=== PATIENT | female | born 1935 | race Caucasian/White ===

== ENCOUNTER → 2020-09-04 | Outpatient (CLI) | payer MEDICARE ==
--- NOTE | 2020-09-04 15:05 | RAD ---
BONE DENSITY AXIAL History: Reason: / Spl. Instructions: / History: Post menopausal TECHNIQUE: Dual energy x-ray absorptiometry of the lumbar spine and right hip was performed. T-score of average bone mineral density based was calculated based on standard deviations above or below the expected young adult normal value. Diagnostic definitions were established by the [employer]. FINDINGS: The average bone mineral density associated with L1-L4 is 0.965 g/cm^2, corresponding with a T-score of -1.8. The average total bone mineral density associated with right hip is 0.756 g/cm^2, corresponding with a T-score of -1.6. Isolated right femoral neck T score -2.8. No comparison examinations are available. Refer to the worksheets for full detail. IMPRESSION: 1. Osteoporosis according to isolated right femoral neck T score. Osteopenia according to the lumbar spine and average of the right hip. Electronically signed by: Tha Hopper DO (09/04/2020 3:02 PM) [id number]
== END ==
LOC: DXRAD 12:44
PROVIDERS: ATTEND Family Medicine
DX: M81.0 Age-related osteoporosis without current pathological fracture (principal); M81.8 Other osteoporosis without current pathological fracture; M85.88 Other specified disorders of bone density and structure, other site
CPT/HCPCS: 77080

== ENCOUNTER → 2021-10-15 | Outpatient (CLI) | payer MEDICARE, OTHER | LOC: MAMMO 10:47 | PROVIDERS: ATTEND Family Medicine | DX: Z12.31 Encounter for screening mammogram for malignant neoplasm of breast (principal) | CPT/HCPCS: 77067 ==